=== PATIENT | female | born 1995 | race Caucasian/White ===

== ENCOUNTER 2018-12-29 11:05 | Emergency (ER) | payer SELFPAY ==
[2018-12-29 11:29] VITALS: BP 111/62
[2018-12-29 12:06] LABS: URINE HCG NEGATIVE (NEG)
[2018-12-29 12:08] LABS: CLARITY,URINE CLOUDY (Clear); COLOR,URINE YELLOW (Yellow); GLUCOSE, URINE NEGATIVE (Neg); KETONES,URINE NEGATIVE (Neg); LEUKOCYTE ESTERASE ,URINE LARGE (Neg); NITRITES, URINE NEGATIVE (Neg); OCCULT BLOOD,URINE LARGE (Neg); PH,URINE 5.5 (4.8-8.0); PROTEIN,URINE NEGATIVE (Neg); UROBILINOGEN,URINE 0.2 E.U/dL (0.2-1.0)
[2018-12-29 12:09] LABS: UA COLLECTION TYPE CLN CATCH MIDSTREAM
[2018-12-29 12:19] LABS: MUCUS STRANDS MANY /LPF (Neg); SQUAMOUS EPITHELIAL CELL,UR MANY /LPF (FEW)
[2018-12-29 12:20] LABS: WBC,URINE 50-100 /HPF (0-4)
[2018-12-29 12:21] LABS: TRICHOMONAS,URINE FEW /HPF (NEGATIVE)
[2018-12-29 12:22] LABS: BACTERIA,URINE FEW /HPF (Neg); RBC,URINE 0-2 /HPF (0-2)
[2018-12-29] MEDS: CefTRIAXone 1000mg IM Kit (w/lidocaine diluent) IM ONE (13:22)
[2018-12-29] MEDS ORDERED: METR500T PO (14:14)
[2018-12-29] MEDS: azithromycin 250mg tablet PO ONE (14:23)
[2018-12-29] MEDS: ondansetron 4mg rapidly disintigrating tab PO ONE (14:23)
[2018-12-29] MEDS: metroNIDAZOLE 500mg tablet PO ONE (14:24)
== END 2018-12-29 14:25 | disposition home or self-care (01) ==
LOC: ER 11:07
DX: N89.8 Other specified noninflammatory disorders of vagina (principal); R30.9 Painful micturition, unspecified; R11.0 Nausea; F12.90 Cannabis use, unspecified, uncomplicated; Z20.2 Contact with and (suspected) exposure to infections with a predominantly sexual mode of transmission; Z79.899 Other long term (current) drug therapy
CPT/HCPCS: 36415; 81001; 81025; 87210; 87491; 87591; 96372; 99284; J0696; Q0112; J3490